=== PATIENT | male | born 1935 | race Two or more races ===

== ENCOUNTER 2019-05-25 10:20 | Inpatient (IN) | payer MEDICARE, MEDICAID ==
[~2019-05-25] VITALS: Ht 185.4 cm; Wt 72.6 kg
[2019-05-25 11:15] LABS: BASOPHILS % (AUTO) 0.6 % (0.0-2.0); EOSINOPHILS % (AUTO) 0.2 % (0.0-6.0); HEMATOCRIT 28 % (39-51); HEMOGLOBIN 8.7 g/dL (13.5-17.5); LYMPHOCYTES # (AUTO) 1.5 /CMM (0.8-4.8); MEAN CORPUSCULAR HGB CONC 31 g/dl (31.0-36.0); MEAN CORPUSCULAR VOLUME 86 fL (80-96); MONOCYTES # (AUTO) 0.4 /CMM (0.1-1.30); MONOCYTES % (AUTO) 5.9 % (2.0-12.0); NEUTROPHILS # (AUTO) 5.2 /CMM (1.8-8.9); NEUTROPHILS % (AUTO) 72.3 % (43.0-81.0); PLATELET COUNT (AUTO) 407 /CMM (150-450); RED BLOOD CELL COUNT(AUTO) 3.24 MIL/uL (4.5-6.0); WHITE BLOOD COUNT (AUTO) 7.3 K/uL (4.3-11.0)
[2019-05-25 11:20] LABS: APPEARANCE,URINE Slightly Cloudy (CLEAR); BILIRUBIN,URINE Negative (NEGATIVE); BLOOD, URINE Small Ery/uL (NEGATIVE); KETONES,URINE Negative (NEGATIVE); LEUKOCYTE ESTERASE ,URINE Moderate (NEGATIVE); NITRITE, URINE Negative (NEGATIVE); PROTEIN,URINE 30 mg/dl (NEGATIVE); UGLUCOSE Negative (NEGATIVE); UROBILINOGEN,URINE 0.2 EU/dL (0.2)
[2019-05-25 11:21] LABS: CALCIUM, SERUM 8.6 mg/dL (8.5-10.1); CARBON DIOXIDE 28 mmol/L (21-32); CHLORIDE 106 mmol/L (98-107); CREATININE 0.8 mg/dL (0.6-1.3); GLUCOSE 105 mg/dL (74-106); POTASSIUM 3.5 mmol/L (3.5-5.1); SODIUM SERUM 143 mmol/L (136-145); UREA NITROGEN, BLOOD 18 mg/dL (7-18)
[2019-05-25 11:25] LABS: COLOR,URINE Light Yellow (YELLOW)
[2019-05-25 11:27] LABS: ACETAMINOPHEN < 2 ug/ml (10-30); ALANINE AMINOTRANSFERASE 25 U/L (12-78); ALBUMIN 3.5 g/dL (3.4-5.0); ALCOHOL, BLOOD < 3 mg/dL (0-0); ALKALINE PHOSPHATASE 78 U/L (46-116); ASPARTATE AMINOTRANSFERASE 17 U/L (15-37); BILIRUBIN,TOTAL 0.1 mg/dL (0.2-1.0); SALICYLATE < 2.8 mg/dL (2.8-20.0); TOTAL PROTEIN, SERUM 7.4 g/dL (6.4-8.2)
[2019-05-25 11:30] LABS: SQUAMOUS EPITHELIAL CELL,UR Rare /HPF (None Seen); WBC,URINE TOO NUMEROUS TO COUN /HPF (0-3)
[2019-05-25 11:31] LABS: BACTERIA,URINE Rare /HPF (None Seen)
[2019-05-25 11:59] LABS: THYROID STIMULATING HORMONE 2.021 uIU/mL (0.358-3.74)
[2019-05-25] MEDS ORDERED: CLOP75TA15 PO (12:35)
[2019-05-25] MEDS ORDERED: LEVO50TA8 PO (12:35)
[2019-05-25] MEDS ORDERED: LOSA50TA39 PO (12:35)
[2019-05-25] MEDS ORDERED: METO50TA16 PO (12:35)
[2019-05-25] MEDS ORDERED: DOCU-141 PO (12:35)
[2019-05-25] MEDS ORDERED: QUET50TA PO (12:35)
[2019-05-25] MEDS ORDERED: CEFTRIAXONE 1 G VIAL ONE (13:26)
[2019-05-25] MEDS ORDERED: LIDOCAINE /MPF 1% VIAL 5 ML VIAL ONE (13:26)
[2019-05-25] MEDS ORDERED: MAGNESIUM HYDROXIDE 30 ML UDC PO PRN (13:30)
[2019-05-25] MEDS ORDERED: CEFTRIAXONE 1GM BAG (ER ONLY) 1 GM/50 ML PIGGYBACK IV ONE (13:30)
[2019-05-25] MEDS ORDERED: MAG HYDROX/AL HYDROX/SIMETH 30 ML UDC PO PRN (13:30)
[2019-05-25] MEDS ORDERED: ACETAMINOPHEN 325 MG TABLET PO PRN (13:30)
[2019-05-25] MEDS ORDERED: CEFTRIAXONE 1 G VIAL IM SCH (13:30)
[2019-05-25 16:00] VITALS: BP 150/85
[2019-05-25 20:02] VITALS: BP 102/57
[2019-05-25] MEDS: DIVALPROEX SODIUM 250 MG TABLET.DR PO SCH (21:21)
[2019-05-25] MEDS: QUETIAPINE FUMARATE 100 MG TABLET PO SCH (21:22)
[2019-05-26] MEDS: LEVOTHYROXINE SODIUM 50 MCG TABLET PO SCH (07:32)
[2019-05-26] MEDS: LOSARTAN POTASSIUM 50 MG TABLET PO SCH (07:32)
[2019-05-26] MEDS: CLOPIDOGREL BISULFATE 75 MG TABLET PO SCH (07:32)
[2019-05-26 08:00] VITALS: BP 139/70
[2019-05-26] MEDS: DOCUSATE SODIUM 100 MG CAPSULE PO SCH ×2 (09:12→17:50)
[2019-05-26] MEDS: METOPROLOL TARTRATE 50 MG TABLET PO SCH ×2 (09:12→17:51)
[2019-05-26] MEDS: DIVALPROEX SODIUM 250 MG TABLET.DR PO SCH ×2 (09:12→20:44)
[2019-05-26] MEDS: CEPHALEXIN MONOHYDRATE 500 MG CAPSULE PO SCH ×2 (09:12→16:45)
[2019-05-26 16:00] VITALS: BP 114/68
[2019-05-26 16:00] LABS: ALANINE AMINOTRANSFERASE 27 U/L (12-78); ALBUMIN 3.5 g/dL (3.4-5.0); ALKALINE PHOSPHATASE 65 U/L (46-116); ASPARTATE AMINOTRANSFERASE 26 U/L (15-37); BILIRUBIN,TOTAL 0.2 mg/dL (0.2-1.0); CALCIUM, SERUM 8.9 mg/dL (8.5-10.1); CARBON DIOXIDE 28 mmol/L (21-32); CHLORIDE 103 mmol/L (98-107); CREATININE 1.1 mg/dL (0.6-1.3); GLUCOSE 99 mg/dL (74-106); POTASSIUM 4.3 mmol/L (3.5-5.1); SODIUM SERUM 140 mmol/L (136-145); TOTAL PROTEIN, SERUM 7.6 g/dL (6.4-8.2); UREA NITROGEN, BLOOD 20 mg/dL (7-18)
[2019-05-26 16:02] LABS: CHOLESTEROL 134 mg/dL (<200); HDL CHOLESTEROL 43 mg/dL (40-60); LDL 82 mg/dL (0-99); TRIGLYCERIDES 93 mg/dL (30-150)
[2019-05-26 20:00] VITALS: BP 106/57
[2019-05-26] MEDS: QUETIAPINE FUMARATE 100 MG TABLET PO SCH (21:23)
[2019-05-27] MEDS: LORAZEPAM 0.5 MG TABLET PO PRN (03:11)
[2019-05-27] MEDS: LOSARTAN POTASSIUM 50 MG TABLET PO SCH (07:30)
[2019-05-27 08:00] VITALS: BP 99/67
[2019-05-27] MEDS: DIVALPROEX SODIUM 250 MG TABLET.DR PO SCH ×2 (08:06→21:07)
[2019-05-27] MEDS: CEPHALEXIN MONOHYDRATE 500 MG CAPSULE PO SCH ×2 (08:06→17:18)
[2019-05-27] MEDS: LEVOTHYROXINE SODIUM 50 MCG TABLET PO SCH (08:07)
[2019-05-27] MEDS: DOCUSATE SODIUM 100 MG CAPSULE PO SCH ×2 (08:07→17:30)
[2019-05-27] MEDS: CLOPIDOGREL BISULFATE 75 MG TABLET PO SCH (08:07)
[2019-05-27] MEDS: METOPROLOL TARTRATE 50 MG TABLET PO SCH ×2 (08:09→17:31)
[2019-05-27 16:00] VITALS: BP 144/78
[2019-05-27 19:42] VITALS: BP 115/63
[2019-05-27] MEDS: QUETIAPINE FUMARATE 100 MG TABLET PO SCH (21:07)
[2019-05-27] MEDS: TEMAZEPAM 7.5 MG CAPSULE PO PRN (21:08)
[2019-05-28] MEDS: LORAZEPAM 0.5 MG TABLET PO PRN (01:06)
[2019-05-28 08:00] VITALS: BP 130/83
[2019-05-28] MEDS: DOCUSATE SODIUM 100 MG CAPSULE PO SCH ×2 (08:10→17:32)
[2019-05-28] MEDS: LEVOTHYROXINE SODIUM 50 MCG TABLET PO SCH (08:10)
[2019-05-28] MEDS: CLOPIDOGREL BISULFATE 75 MG TABLET PO SCH (08:10)
[2019-05-28] MEDS: DIVALPROEX SODIUM 250 MG TABLET.DR PO SCH ×2 (08:10→20:22)
[2019-05-28] MEDS: CEPHALEXIN MONOHYDRATE 500 MG CAPSULE PO SCH ×2 (08:10→17:27)
[2019-05-28] MEDS: LOSARTAN POTASSIUM 50 MG TABLET PO SCH (08:10)
[2019-05-28] MEDS: METOPROLOL TARTRATE 50 MG TABLET PO SCH ×2 (08:12→17:33)
[2019-05-28 16:00] VITALS: BP 137/64
[2019-05-28 19:44] VITALS: BP 112/64
[2019-05-28] MEDS: TEMAZEPAM 7.5 MG CAPSULE PO PRN (20:58)
[2019-05-28] MEDS: QUETIAPINE FUMARATE 100 MG TABLET PO SCH (21:02)
[2019-05-29] MEDS: CLOPIDOGREL BISULFATE 75 MG TABLET PO SCH (07:30)
[2019-05-29] MEDS: LEVOTHYROXINE SODIUM 50 MCG TABLET PO SCH (07:30)
[2019-05-29] MEDS: LOSARTAN POTASSIUM 50 MG TABLET PO SCH (07:30)
[2019-05-29 08:00] VITALS: BP 119/60
[2019-05-29] MEDS: CEPHALEXIN MONOHYDRATE 500 MG CAPSULE PO SCH ×2 (09:06→17:08)
[2019-05-29] MEDS: DOCUSATE SODIUM 100 MG CAPSULE PO SCH ×2 (09:06→17:36)
[2019-05-29] MEDS: METOPROLOL TARTRATE 50 MG TABLET PO SCH ×2 (09:08→17:36)
[2019-05-29] MEDS: DIVALPROEX SODIUM 250 MG TABLET.DR PO SCH ×2 (09:09→21:11)
[2019-05-29 16:00] VITALS: BP 124/64
[2019-05-29 20:00] VITALS: BP 130/75
[2019-05-29] MEDS: QUETIAPINE FUMARATE 100 MG TABLET PO SCH (21:10)
[2019-05-30] MEDS: TEMAZEPAM 7.5 MG CAPSULE PO PRN (02:31)
[2019-05-30] MEDS: LOSARTAN POTASSIUM 50 MG TABLET PO SCH (07:30)
[2019-05-30] MEDS: CLOPIDOGREL BISULFATE 75 MG TABLET PO SCH (07:30)
[2019-05-30] MEDS: LEVOTHYROXINE SODIUM 50 MCG TABLET PO SCH (07:30)
[2019-05-30 08:00] VITALS: BP 128/65
[2019-05-30] MEDS: DIVALPROEX SODIUM 250 MG TABLET.DR PO SCH ×3 (08:58→21:16)
[2019-05-30] MEDS: CEPHALEXIN MONOHYDRATE 500 MG CAPSULE PO SCH ×2 (08:58→16:54)
[2019-05-30] MEDS: METOPROLOL TARTRATE 50 MG TABLET PO SCH ×2 (08:58→17:32)
[2019-05-30] MEDS: DOCUSATE SODIUM 100 MG CAPSULE PO SCH ×2 (08:59→17:32)
[2019-05-30 16:00] VITALS: BP 150/97
[2019-05-30 20:03] VITALS: BP 126/69
[2019-05-30] MEDS: QUETIAPINE FUMARATE 100 MG TABLET PO SCH (21:16)
[2019-05-31 08:00] VITALS: BP 112/74
[2019-05-31] MEDS: CLOPIDOGREL BISULFATE 75 MG TABLET PO SCH (08:10)
[2019-05-31] MEDS: DIVALPROEX SODIUM 250 MG TABLET.DR PO SCH ×3 (08:10→20:38)
[2019-05-31] MEDS: DOCUSATE SODIUM 100 MG CAPSULE PO SCH ×2 (08:10→18:24)
[2019-05-31] MEDS: LOSARTAN POTASSIUM 50 MG TABLET PO SCH (08:11)
[2019-05-31] MEDS: LEVOTHYROXINE SODIUM 50 MCG TABLET PO SCH (08:11)
[2019-05-31] MEDS: CEPHALEXIN MONOHYDRATE 500 MG CAPSULE PO SCH ×2 (08:12→16:56)
[2019-05-31] MEDS: METOPROLOL TARTRATE 50 MG TABLET PO SCH ×2 (08:12→18:23)
[2019-05-31 16:00] VITALS: BP 139/72
[2019-05-31 20:07] VITALS: BP 129/71
[2019-05-31] MEDS: QUETIAPINE FUMARATE 100 MG TABLET PO SCH (20:38)
[2019-06-01 08:00] VITALS: BP 123/65
[2019-06-01] MEDS: CLOPIDOGREL BISULFATE 75 MG TABLET PO SCH (08:16)
[2019-06-01] MEDS: DIVALPROEX SODIUM 250 MG TABLET.DR PO SCH ×3 (08:16→20:10)
[2019-06-01] MEDS: DOCUSATE SODIUM 100 MG CAPSULE PO SCH ×2 (08:16→16:19)
[2019-06-01] MEDS: CEPHALEXIN MONOHYDRATE 500 MG CAPSULE PO SCH ×2 (08:16→16:19)
[2019-06-01] MEDS: METOPROLOL TARTRATE 50 MG TABLET PO SCH ×2 (08:17→17:52)
[2019-06-01] MEDS: LEVOTHYROXINE SODIUM 50 MCG TABLET PO SCH (08:17)
[2019-06-01] MEDS: LOSARTAN POTASSIUM 50 MG TABLET PO SCH (08:17)
[2019-06-01 16:00] VITALS: BP 121/62
[2019-06-01 19:54] VITALS: BP 131/66
[2019-06-01] MEDS: QUETIAPINE FUMARATE 100 MG TABLET PO SCH (21:03)
[2019-06-02] MEDS: LOSARTAN POTASSIUM 50 MG TABLET PO SCH (07:30)
[2019-06-02 08:00] VITALS: BP 105/64
[2019-06-02] MEDS: DIVALPROEX SODIUM 250 MG TABLET.DR PO SCH (08:22)
[2019-06-02] MEDS: DOCUSATE SODIUM 100 MG CAPSULE PO SCH (08:22)
[2019-06-02] MEDS: LEVOTHYROXINE SODIUM 50 MCG TABLET PO SCH (08:22)
[2019-06-02] MEDS: CLOPIDOGREL BISULFATE 75 MG TABLET PO SCH (08:22)
[2019-06-02 08:34] VITALS: BP 105/64
[2019-06-02] MEDS: METOPROLOL TARTRATE 50 MG TABLET PO SCH (08:34)
== END 2019-06-02 11:35 | disposition home or self-care (01) | DRG 885 ==
LOC: ER 10:23 → GPS 12:56
PROVIDERS: ADMIT Psychiatry & Neurology Psychiatry; ATTEND Registered Nurse
DX: F29 Unspecified psychosis not due to a substance or known physiological condition (principal); N39.0 Urinary tract infection, site not specified; F03.91 Unspecified dementia, unspecified severity, with behavioral disturbance; F39 Unspecified mood [affective] disorder; F20.9 Schizophrenia, unspecified; I10 Essential (primary) hypertension; E03.9 Hypothyroidism, unspecified; Z86.73 Personal history of transient ischemic attack (TIA), and cerebral infarction without residual deficits
CPT/HCPCS: 36415; 70450-TC; 80048-TC; 80053-TC; 80061-TC; 80076-TC; 80164-TC; 80305; 81000-TC; 84443-TC; 84484-TC; 85025-TC; 87081-TC; 87086-TC; A6402; G0480; J0696; J3490